=== PATIENT | male | born 1955 | race Caucasian/White ===

== ENCOUNTER 2021-01-17 08:56 | Outpatient (RCR) | payer OTHER, SELFPAY ==
--- NOTE | 2021-01-25 18:00 | MHC.SP.ADU ---
Referring provider: Elli Sloan DNP Reason for Referral: Word finding difficulty Type of Treatment: 97201 Evaluation Speech Sound Production WITH Language Date of Plan of Treatment: 01/17/21 Onset of Symptoms/Illness: 11/07/16 Date Treatment Started: 01/17/21 Medical Diagnosis: Hypertension, arthritis, diabetes, stroke 4 years ago Primary Speech Language Diagnosis: R47.01 Aphasia History Patient is a 65 year old man who attended this evaluation unaccompanied. Background information included in this report was provided by the patient himself and review of past medical documentation. 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 He was referred for a speech-language evaluation by Elli Sloan DNP from [facility] Neurology Department. Patient wears glasses and ambulates without difficulty. Patient?s past medical history is significant for hypertension, arthritis, diabetes, and stroke 4 years ago. Patient was admitted to [facility] in November 2016 for signs of stroke, including right facial droop, expressive language difficulties, and slurred speech. Patient?s brain MRI then revealed, ?multiple infarcts within the left MCA territory, the largest involving the left frontal lobe and anterior left insular ribbon.? Patient attended weekly speech therapy sessions after his stroke for about 1-2 months for word finding difficulty on confrontation and during conversation. Patient reports that although he notices significant improvement since then, he continues to exhibit trouble remembering names at times. Medical History: Arthritis Diabetes High Blood Pressure Stroke Respiratory Needs: Room Air Patient Orientation: Alert & Oriented x 4 Social History: Past Speech Language Therapy: Patient attended weekly speech therapy sessions in 2017 after his stroke. Reported Speech, Language, Cognition difficulties: Memory Speaking Assessment Speech Production: Within Functional Limits Clinical Impression: Intact Observations: Patient was 100% intelligible to this clinician. Patient spoke fluently with appropriate rate of speech. Patient spoke using complete sentences with intact syntactic structure and appropriate semantics. Patient engaged in conversation with ease, followed directions, and answered questions appropriately. Informal Voice Assessment: Voice Loudness: Normal Voice Nasal Resonance: Normal Voice Oral Resonance: Normal Voice Phonatory-based Quality: Normal Voice Pitch: Normal Clinical Impression: Intact Clinicial Observations: Vocal quality was perceived to be within functional limits for patient's age and gender based on clinical judgment. Tests of Speech & Lang Adults: BDAE BNT Clinical Impression: Intact Observations: Patient completed the Blackstone Naming Test (BNT). He was presented with images, which he was instructed to name in a confrontation naming task. Patient correctly named 56 out of 60 images. When prompted with a forced choice, patient selected the correct answer 4/4 times. Patient was able to name both familiar/salient (i.e. house) and unfamiliar (i.e. abacus) items. Patient was administered the Auditory Comprehension, Oral Expression, Reading and Writing subtests of the Blackstone Diagnostic Aphasia Examination. His performance is summarized below: RECEPTIVE LANGUAGE: -Patient followed single step commands without difficulty. He demonstrated basic word discrimination: correct -Patient followed multistep and complex directions without difficulty: 03/18 correct -Patient correctly answered yes/no questions about ideational material and about short stories read aloud for him: 11/12 score EXPRESSIVE LANGUAGE: -Patient generated the days of the week and counted to 21, demonstrating intact automatic speech: 09/10 score -Patient repeated single words and complete sentences without error, demonstrating intact repetition: 10/11, 07/11 scores -Patient responded appropriately to responsive naming questions: 03/18 score -Patient correctly named ?special categories,? which included letters, numbers, and colors: 05/20 score READING: -Patient was able to match letters across cases and scripts, demonstrating basic symbol recognition- 09/10 correct -Patient was able to match numbers to fingers and dot patterns- 09/10 correct -Patient matched pictures to written words, demonstrating intact word identification- 09/10 correct -Patient read aloud single words without difficulty. Patient read aloud single words within 0-3 seconds, demonstrating basic oral word reading- score -Patient read aloud sentences without error, demonstrating oral reading of sentences. Patient answered comprehension questions correctly after a short time delay- 5/5 correct; 3/3 correct -Patient read aloud sentences and paragraphs and selected the completion from a choice of 4 without assistance- 09/10 correct WRITING: -Patient was able to print and sign his name -Patient was able to write dictated letters -Patient was able to write numbers 1-10 -Patient was able to write dictated numbers -Patient wrote primer words (i.e. cat; run; go; dog), words with regular phonics (i.e. flag), and common irregular forms (i.e. cough) without error, demonstrating basic encoding skills when writing dictated words- 4/4; 2/2; 3/3 correct -Patient wrote the names of items depicted in illustrations (written picture naming)- 4/4 correct Patient scores within the typical range according to standardized testing today which targeted receptive language, expressive language, reading, and writing. Patient is functional with his communication. He answered questions and followed directions with ease. Patient was 100% intelligible to this clinician. He spoke in complete sentences. Syntax is intact. Speech therapy is not indicated at this time. However, given history of CVA, recommend continued close monitoring of speech, language, and cognition. If there are any changes or further concerns, strongly recommend repeat evaluation. Tests of Cognition: CLQT Clinical Impression: Intact Observations: Patient completed the Cognitive Linguistic Quick Test (CLQT) as a measure of his cognitive-linguistic skills. His performance is as follows: Task: Patient?s Score, Criterion Cut Score, Interpretation Personal Facts: 8, 8, Within Functional Limits Symbol Cancellation: 10, 11, Below Average Confrontational Namin, 10, Within Functional Limits Clock Drawin, 12, Within Functional Limits Story Retellin, 6, Within Functional Limits Symbol Trails: 9, 9, Within Functional Limits Generative Namin, 5, Within Functional Limits Design Memory: 5, 5, Within Functional Limits Mazes: 7, 7, Within Functional Limits Design Generation: 6, 6, Within Functional Limits Task scores were summed together based on cognitive domain. Cognitive Domain scores are as follows: Cognitive Domain: Domain Score, Severity Range, Severity Rating Attention: 175, Mild, 3 Memory: 154, Mild, 3 Executive Functions: 28, Within Normal Limits, 4 Language: 31, Within Normal Limits, 4 Visuospatial Skills: 85, Within Normal Limits, 4 Patient?s Composite Severity Rating of 3.6 is interpreted as WITHIN NORMAL LIMITS according to his performance on this assessment measure. Augmentative and Alternative Communication: Observations: Impressions and Recommendations Summary: Patient scores within the typical range according to standardized testing today which targeted cognitive linguistic skills, receptive language, expressive language, reading, and writing. Patient is functional with his communication. He answered questions and followed directions with ease. Patient was 100% intelligible to this clinician. He spoke in complete sentences. Syntax is intact. Speech therapy is not indicated at this time. However, given history of CVA, recommend continued close monitoring of speech, language, and cognition. If there are any changes or further concerns, strongly recommend repeat evaluation. Prognosis for Improvement: Fair Recommendation for Speech Therapy: NA:Typical Evaluation Patient Education: Completed: Yes Patient/Caregiver Education: Described Results of Evaluation Patient expressed understanding of evaluation Comments/Barriers to Learning: It has been a pleasure meeting Mr. Murillo. Please do not hesitate to reach me at [phone] if I can be of further assistance. Senior Licensing Manager Clinican/Clinical Fellow: No Supervisory Statement: N/A Speech Language Pathologist: Melodie Castillo M.A., CCC-FAMILY PRACTICE PHYSICIAN
== END 2021-10-08 16:03 | disposition home or self-care (01) ==
LOC: HO.SH 08:56
PROVIDERS: Visit Provider Nurse Practitioner Family
DX: R47.01 Aphasia (principal)
CPT/HCPCS: 92523

== ENCOUNTER 2024-02-25 12:42 | Outpatient (REF) | payer MEDICARE, SELFPAY ==
--- NOTE | ~2024-02-25 | XR_ITS ---
EXAMINATION: XR SINGLE STANDING VIEW BOTH KNEES WITH 2 ADDITIONAL VIEWS RIGHT KNEE CLINICAL INFORMATION: Right knee pain. COMPARISON: None available. TECHNIQUE: Single standing view both knees with 2 additional views right knee. FINDINGS: There is narrowing of both medial compartments, right greater than left. There is no chondrocalcinosis. A tiny right joint effusion is present. An enthesis is noted at the insertion of the quadriceps tendon in the superior patella. XR/XR knee RT 1V IMPRESSION: Degenerative changes with narrowing of the medial compartments, right greater than left. Electronically signed by: Yadiel Tate MD 02/25/2024 10:53 PM EDT
--- NOTE | ~2024-02-25 | XR_ITS ---
EXAMINATION: XR SINGLE STANDING VIEW BOTH KNEES WITH 2 ADDITIONAL VIEWS RIGHT KNEE CLINICAL INFORMATION: Right knee pain. COMPARISON: None available. TECHNIQUE: Single standing view both knees with 2 additional views right knee. FINDINGS: There is narrowing of both medial compartments, right greater than left. There is no chondrocalcinosis. A tiny right joint effusion is present. An enthesis is noted at the insertion of the quadriceps tendon in the superior patella. XR/XR knee LT 3V IMPRESSION: Degenerative changes with narrowing of the medial compartments, right greater than left. Electronically signed by: Yadiel Tate MD 02/25/2024 10:53 PM EDT
== END 2024-02-25 12:43 | disposition home or self-care (01) ==
LOC: HO.HOSX 12:42
PROVIDERS: PCP Internal Medicine; Visit Provider Physician Assistant
DX: M23.8X2 Other internal derangements of left knee (principal); M23.8X1 Other internal derangements of right knee
CPT/HCPCS: 73560; 73562; 99202

== ENCOUNTER 2024-02-25 13:23 | Outpatient (AMB) | payer MEDICARE, SELFPAY ==
[2024-02-25 14:01] VITALS: BMI 28.6
--- NOTE | 2024-02-25 14:01 | MHC.OFFVIS ---
Vital Signs 02/25/24 14:01 Height 5 ft 11 in Weight 205 lb BMI 28.6 Intake Visit Reasons: [employer] WR[employer]- Left knee strain, stiffness and pain Intake Note: Antonio a 68 year old male who presents today for a new patient evaluation of left knee. Patient report left knee pain has been present a little over a year however about a month ago he turned to wave and felt an increase of pain in his knee. He has has improvement in his pain. He describes his pain as an ache that is located at the lateral aspect of knee. His pain is worse is the mornings and with driving. Denies numbness or tingling. No previous tx. Allergies No Known Allergies [No Known Allergies*] Allergy (Unverified 02/25/24 14:01) Medication List - Last Reconciled 02/25/24 by Yessy Manjarrez PA-C atorvastatin 40 mg PO DAILY dulaglutide (Trulicity) mg subcut glipizide ER 10 mg PO BID lisinopril 30 mg PO DAILY metformin 1,000 mg PO BID sitagliptin phosphate (Januvia) 100 mg PO DAILY HPI HPI [employer] WR[employer]- Left knee strain, stiffness and pain: Details: The patient is a 68-year-old male who returns to the office today for evaluation of left knee. He states he has left knee strain, stiffness and pain since about a year, however, noted increased pain in the knee about a month ago. He notes the pain in the lateral aspect of the knee and does not have when he is up and walking. It is especially worse in the morning and with driving. He denies any numbness or tingling. He has no pain with going up or down the stairs, but has trouble when walking down hill. He reports his diabetes is under good control. [facility] Social History (Updated 02/25/24 @ 14:02 by Laura Vance Adalgisa) Patient Tobacco Use Status: Never used Tobacco Current occupational status: employed Current occupation: commercial painting Review of Systems Const All systems reviewed & are unremarkable except as noted in HPI and below Physical Exam Vital Signs: BMI result Body Mass Index 28.6 Const General: cooperative and no acute distress Orientation/consciousness: patient oriented x3 Resp Effort & Inspection: normal respiratory effort and able to speak in complete sentences Cardio Peripheral pulses: Peripheral pulses 2+ throughout Neuro General: patient oriented x3 Extrem Other: Left knee: Skin intact, no erythema or joint effusion. Tenderness along lateral l joint line. Full ROM with crepitus. Negative Erika?s. No ligamentous laxity. NVI. Results Reviewed Results Reviewed: xrays of the left knee obtained today are negative for acute fractures. There is mild oa. Assessment & Plan Assessment & Plan (1) Osteoarthritis of left knee: Code(s): M17.12 - Unilateral primary osteoarthritis, left knee Category: Medical Qualifiers: Osteoarthritis type: primary Qualified Code(s): M17.12 - Unilateral primary osteoarthritis, left knee Plan We discussed options including physical therapy and cortisone injection. We will hold off on the injection as his symptoms are improving. Given a prescription for Celebrex for the arthritis pain. If the symptoms do not resolve in the next 4-6 weeks, will consider an injection, otherwise follow up as need. Scribed for Yessy Manjarrez PA-C, by Galdino Brannon medical records specialist, on 02/25/2024 at 14:00 AM EST. I, Yessy Manjarrez PA-C, have personally reviewed and agree with the information entered by the scribe. Orders: Orders XR knee LT 3V Today M25.562 - Pain in left knee XR knee RT 1V Today M25.561 - Pain in right knee Medications: New celecoxib (Celebrex) 200 mg PO BID 60 caps 3RF 30 days Coding Level of Care Code New Pt Level 3 (15886) Complex EM visit Add On G2211 Diagnoses Primary osteoarthritis of left knee M17.12 Osteoarthritis type: primary
== END 2024-02-25 21:00 | disposition home or self-care (01) ==
PROVIDERS: Visit Provider Physician Assistant
DX: M17.12 Unilateral primary osteoarthritis, left knee (principal)
CPT/HCPCS: 99204; G2211